=== PATIENT | male | born 1995 | race African-American/Black ===

== ENCOUNTER 2019-01-02 22:25 | Emergency (ER) | payer SELFPAY ==
[~2019-01-02] VITALS: Ht 160 cm; Wt 56.7 kg
[2019-01-02 22:45] VITALS: BP 113/64
--- NOTE | 2019-01-03 00:55 | PHYS DOC ---
Past Medical History Past Medical History: No Pertinent History Additional Past Medical Histor: Possibly asthma per pt Past Surgical History: No Surgical History Alcohol Use: Rarely Drug Use: Marijuana Adult General Chief Complaint Chief Complaint: COUGH HPI HPI Patient is a 23 year old male who presents with cough and sore throat for last 3 days. Patient states also been running a fever. Patient is febrile at 100.6 in the ED. Patient states he is eating and drinking. Review of Systems Review of Systems Constitutional: fever or chills [] Eyes: Denies change in visual acuity, redness, or eye pain [] HENT: Denies nasal congestion. +sore throat [] Respiratory: cough or shortness of breath [] Cardiovascular: No additional information not addressed in HPI [] GI: Denies abdominal pain, nausea, vomiting, bloody stools or diarrhea [] : Denies dysuria or hematuria [] Musculoskeletal: Denies back pain or joint pain [] Neurologic: Denies headache, focal weakness or sensory changes [] All other systems were reviewed and found to be within normal limits, except as documented in this note. Current Medications Current Medications Current Medications Medications (Trade) Dose Ordered Sig/David Start Time Stop Time Status Last Admin Dose Admin Acetaminophen/ Hydrocodone Bitart (Lortab 5/325) 1 tab 1X ONCE 01/03/19 01:00 01/03/19 01:01 DC 01/03/19 00:36 1 TAB Allergies Allergies Allergies Coded Allergies Type Severity Reaction Last Updated Verified No Known Drug Allergies 07/06/13 No Physical Exam Physical Exam Constitutional: Well developed, well nourished, no acute distress, non-toxic appearance. [] HENT: Normocephalic, atraumatic, bilateral external ears normal, oropharynx moist, no oral exudates, nose normal. Throat reddened with 1+ swelling and no exudates.[] Eyes: PERRLA, EOMI, conjunctiva normal, no discharge. [] Neck: Normal range of motion, no tenderness, supple, no stridor. [] Cardiovascular:Heart rate regular rhythm, no murmur [] Lungs & Thorax: Bilateral breath sounds clear to auscultation [] Abdomen: Bowel sounds normal, soft, no tenderness, no masses, no pulsatile masses. [] Skin: Warm, dry, no erythema, no rash. [] Back: No tenderness, no CVA tenderness. [] s noted. [] Psychologic: Affect normal, judgement normal, mood normal. [] Current Patient Data Vital Signs Vital Signs Date Time Temp Pulse Resp B/P (MAP) Pulse Ox O2 Delivery O2 Flow Rate FiO2 01/02/19 22:45 100.6 83 18 113/64 (80) 98 Room Air 100.6 EKG EKG [] Radiology/Procedures Radiology/Procedures [] Course & Med Decision Making Course & Med Decision Making Patient is a 23 year old male who presents with cough and sore throat for last 3 days. Patient states also been running a fever. Patient is febrile at 100.6 in the ED. Patient states he is eating and drinking. Alert and oriented. Skin pink warm and dry. Mucous membranes moist. Patient rates his pain a 7 out of 10 and is given a [place] in the ED. Throat is reddened and swollen 1+ there are no exudates seen. Lungs are clear to auscultation all lobes. Bilateral tympanic membranes are pearly white. Speaks in full clear sentences. Ambulatory with a steady gait. Abdomen is soft and nontender. Patient denies chest pain, shortness of air, abdominal pain, nausea, vomiting, diarrhea, dizziness, headache or changes. There is no sinus tenderness. PERRLA. No lymph nodes are palpable. Chest x-ray shows no acute findings as read by Dr. Harrell. Strep negative. Patient is treated with a Medrol Dosepak and azithromycin. Patient to follow up with primary care provider if needed. Patient take Tylenol or ibuprofen for pain and fever. Dragon Disclaimer Dragon Disclaimer This electronic medical record was generated, in whole or in part, using a voice recognition dictation system. Departure Departure Impression: Primary Impression: Upper respiratory infection Disposition: 01 HOME, SELF-CARE Condition: STABLE Referrals: NO PCP (PCP) Patient Instructions: Upper Respiratory Infection, Adult Additional Instructions: Follow up primary care provider if needed. Take medications as prescribed. Use ibuprofen or Tylenol for fever and pain. Scripts Methylprednisolone (MEDROL) 4 Mg Tab.ds.pk 1 PKG PO UD, #1 PKG Prov: JAVIER TOBAR EDGE BANDER HAND 01/03/19 Azithromycin (AZITHROMYCIN TABLET) 250 Mg Tablet 1 PKG PO UD, #6 TAB Prov: JAVIER TOBAR EDGE [employer] HAND 01/03/19 Problem Qualifiers Primary Impression: Upper respiratory infection URI type: unspecified viral URI Qualified Codes: J06.9 - Acute upper respiratory infection, unspecified JAVIER TOBAR EDGE BANDER HAND Jan 03, 2019 00:55
[2019-01-03] MEDS ORDERED: HYDROcodone/APAP 5/325MG 1 TAB TABLET PO ONE (01:00)
[2019-01-03] MEDS ORDERED: AZIT250T6 PO (01:05)
[2019-01-03] MEDS ORDERED: METH4TAB2 PO (01:05)
--- NOTE | 2019-01-03 04:33 | RAD ---
Chest PA and lateral: Reason for examination: Cough. The heart size is normal. Mediastinum is unremarkable. Lung solares are clear. No acute bony abnormalities are seen. Impression: No acute cardiopulmonary disease. Electronically signed by: Marley Lassiter MD (01/03/2019 4:30 AM) [facility] [id number]
== END 2019-01-03 01:13 | disposition home or self-care (01) ==
LOC: ER 22:25
DX: J06.9 Acute upper respiratory infection, unspecified (principal)
CPT/HCPCS: 71046; 87070; 87880; 99285-25

== ENCOUNTER 2021-09-15 17:41 | Emergency (ER) | payer SELFPAY ==
[~2021-09-15] VITALS: Ht 170.2 cm; Wt 66.1 kg
[~2021-09-15 17:41] MED LIST: AZIT250T6 PO; METH4TAB2 PO
[2021-09-15] MEDS ORDERED: KETOROLAC 60 MG/2 ML VIAL. IM ONE (18:30)
--- NOTE | 2021-09-15 18:32 | ED.ADGEN ---
Past Medical History Past Medical History: No Pertinent History Additional Past Medical Histor: Possibly asthma per pt Past Surgical History: No Surgical History Smoking Status: Never Smoker Alcohol Use: Rarely Drug Use: Marijuana General Adult EDM: Chief Complaint: BACK PAIN - NO INJURY HPI: HPI: Patient is a 26 year old male coming in for "years" of low back pain. Patient denies any trauma to his back, history of heavy lifting. Patient denies any history of IV drug use, recent night sweats, fevers, unintended weight loss. Denies any bowel or bladder dysfunction. States the pain does not radiate down his legs. Denies any personal or family history of cancer. States his job is not strenuous. Patient has not had previous work-up before. Does not have a primary care provider. Review of Systems: Review of Systems: All other systems within normal limits except for as noted in the HPI Current Medications: Current Medications Medications (Trade) Dose Ordered Sig/David Start Time Stop Time Status Last Admin Dose Admin Ketorolac Tromethamine (Toradol Im) 60 mg 1X ONCE 09/15/21 18:30 09/15/21 18:31 DC 09/15/21 18:50 60 MG Allergies: Allergies: Allergies Coded Allergies Type Severity Reaction Last Updated Verified No Known Drug Allergies 07/06/13 No Physical Exam: PE: Constitutional: Well developed, well nourished, no acute distress, non-toxic appearance. [] HENT: Normocephalic, atraumatic, bilateral external ears normal, nose normal. [] Eyes: PERRLA, conjunctiva normal, no discharge. [] Neck: No rigidity, supple, no stridor. [] Cardiovascular: Regular rate and rhythm, brisk cap refill [] Lungs & Thorax: Non labored symmetric respirations, no tachypnea or respiratory distress [] Abdomen: Soft, nondistended. Skin: Warm, dry, no erythema, no rash. [] Back: Unremarkable, no point spine tenderness, no step-off or deformity, no curvature, very tense bilateral paraspinous muscles Extremities: No deformities, range of motion grossly intact, no lower extremity edema [] Neurologic: Alert and oriented X 3, no focal deficits noted. [] Psychologic: Affect normal, judgement normal, mood normal. [] Current Patient Data: Vital Signs: Vital Signs Date Time Temp Pulse Resp B/P (MAP) Pulse Ox O2 Delivery O2 Flow Rate FiO2 09/15/21 20:10 72 18 118/66 (83) 100 09/15/21 18:00 98.3 Room Air 98.3 EKG: EKG: [] Heart Score: C/O Chest Pain: No Risk Factors: Risk Factors: DM, Current or recent (<one month) smoker, HTN, HLP, family history of CAD, obesity. Risk Scores: Score 0 - 3: 2.5% MACE over next 6 weeks - Discharge Home Score 4 - 6: 20.3% MACE over next 6 weeks - Admit for Clinical Observation Score 7 - 10: 72.7% MACE over next 6 weeks - Early Invasive Strategies Radiology/Procedures: Radiology/Procedures: [facility] [address] [place], [place] [id number] IMAGING REPORT Signed PATIENT: DEV EWISS ACCOUNT: [id number] : 1995 LOCATION: ER AGE: 26 SEX: M EXAM STATUS: REG ER ORD. PHYSICIAN: AIMEE MUNOZ MD REASON: low back pain PROCEDURE: LUMBAR SPINE 2-3V EXAMINATION: XR LUMBAR SPINE 2-3V CLINICAL HISTORY: Low back pain. TECHNIQUE: XR LUMBAR SPINE 2-3V COMPARISON: None FINDINGS/ IMPRESSION: Normal anatomic alignment. Normal variant hypoplastic right 12th rib. No evidence of acute fracture or spondylolisthesis. Disc spaces maintained. Posterior elements unremarkable. SI joints maintained. Electronically signed by: Alistair Ott DO (09/15/2021 8:23 PM) [facility] DICTATED and SIGNED BY: ALISTAIR OTT DO DATE: 09/15/212020 [] Course & Med Decision Making: Course & Med Decision Making Pertinent Labs and Imaging studies reviewed. (See chart for details) [] Elizabeth Disclaimer: Elizabeth Disclaimer: This electronic medical record was generated, in whole or in part, using a voice recognition dictation system. Departure Departure Impression: Primary Impression: Paraspinal muscle spasm Disposition: 01 HOME / SELF CARE / HOMELESS Condition: STABLE Referrals: NO PCP (PCP) Patient Instructions: Back Exercises, Generic, SportsMed Scripts Cyclobenzaprine Hcl (CYCLOBENZAPRINE HCL) 10 Mg Tablet 1 TAB PO TID PRN for MUSCLE SPASMS, #21 TAB Prov: IAMEE MUNOZ MD 09/15/21 Meloxicam (MELOXICAM) 15 Mg Tablet 1 TAB PO DAILY PRN for PAIN for 30 Days, #30 TAB 0 Refills Prov: AIMEE MUNOZ MD 09/15/21 AIMEE MUNOZ MD September 15, 2021 18:32
[2021-09-15] MEDS ORDERED: CYCL10TA19 PO (20:01)
[2021-09-15] MEDS ORDERED: MELO15TA23 PO (20:01)
[2021-09-15 20:10] VITALS: BP 118/66
--- NOTE | 2021-09-15 20:25 | RAD ---
EXAMINATION: XR LUMBAR SPINE 2-3V CLINICAL HISTORY: Low back pain. TECHNIQUE: XR LUMBAR SPINE 2-3V COMPARISON: None FINDINGS/ IMPRESSION: Normal anatomic alignment. Normal variant hypoplastic right 12th rib. No evidence of acute fracture o r spondylolisthesis. Disc spaces maintained. Posterior elements unremarkable. SI joints maintained. Electronically signed by: Alistair Olvera DO (09/15/2021 8:23 PM) [facility]
== END 2021-09-15 20:10 | disposition home or self-care (01) ==
LOC: ER 17:41
DX: M62.838 Other muscle spasm (principal); M54.50 Low back pain, unspecified
CPT/HCPCS: 72100; 96372; 99283; J1885